=== PATIENT | female | born 1995 | race Caucasian/White ===

== ENCOUNTER 2019-02-28 13:38 | Day surgery (SDC) | payer BC ==
[2019-02-28] VITALS (16 sets, daily range): BP systolic 73–114; BP diastolic 36–77; PULSE 52–70; RESP 10–23; Ht 160 cm; Wt 72.9 kg
[~2019-02-28] VITALS: Ht 160 cm; Wt 72.9 kg
[~2019-02-28 13:38] MED LIST: ALBU8.5H8 IH; DICY10SO PO; FAMO40OR2 PO; IBUP100O28 PO
[2019-02-28] MEDS ORDERED: LACTATED RINGER'S 1,000 ML IV SCH (15:00)
[2019-02-28] MEDS ORDERED: PROPOFOL 100 ML ONE (15:29)
[2019-02-28] MEDS ORDERED: LIDOCAINE 2% (SDV) 5 ML INJ ONE (15:31)
[2019-02-28] MEDS ORDERED: FENTAnyl 50 MCG/ML VIAL ONE (15:32)
[2019-02-28] MEDS ORDERED: CEFAZOLIN 1 GM INJ ONE (15:49)
[2019-02-28] MEDS ORDERED: BUPIVACAINE 0.5% (SDV) 30 ML INJ ONE (15:54)
[2019-02-28] MEDS ORDERED: POLYMYXIN/BACITRACIN 1L IRRIG ONE (15:54)
[2019-02-28] MEDS ORDERED: KETOROLAC 30 MG INJ IV PRN (16:30)
[2019-02-28] MEDS ORDERED: MEPERIDINE 25 MG INJ IV PRN (16:30)
[2019-02-28] MEDS ORDERED: MIDAZOLAM 1 MG/ML 2 ML INJ IV PRN (16:30)
[2019-02-28] MEDS ORDERED: ONDANSETRON 4 MG INJ IV PRN (16:30)
[2019-02-28] MEDS ORDERED: LABETALOL HCL 20MG INJ IV PRN (16:30)
[2019-02-28] MEDS ORDERED: hydrALAzine 20 MG INJ IV PRN (16:30)
[2019-02-28] MEDS ORDERED: OXYCODONE/ACETAMINOPHEN (5/325) TAB PO PRN ×2 (16:30)
[2019-02-28] MEDS ORDERED: EPHEDrine 25 MG/5 ML SYG IV PRN (16:30)
[2019-02-28] MEDS ORDERED: FENTAnyl 50 MCG/ML VIAL IV PRN ×3 (16:30)
[2019-02-28] MEDS ORDERED: DIPHENHYDRAMINE 50 MG INJ IV PRN (16:30)
[2019-02-28] MEDS ORDERED: ALBUTEROL 0.083% (NEB) 2.5 MG/3 ML AMP HHN PRN (16:30)
== END 2019-02-28 17:57 | disposition home or self-care (01) ==
LOC: SDS 13:38
PROVIDERS: ATTEND Orthopaedic Surgery Hand Surgery
DX: I82.611 Acute embolism and thrombosis of superficial veins of right upper extremity (principal)
CPT/HCPCS: 26111; 84703; 88307; J0690; J1885; J2175; J3010; Z7512; Z7610